=== PATIENT | male | born 2000 | race Caucasian/White ===

== ENCOUNTER 2019-01-11 20:41 | Emergency (ER) | payer BC ==
[2019-01-11] MEDS ORDERED: fentaNYL CITRATE/PF 100 MCG/2 ML INJ. ONE (20:42)
[2019-01-11] MEDS ORDERED: fentaNYL CITRATE/PF 100 MCG/2 ML INJ. IVP ONE (20:43)
--- NOTE | 2019-01-11 20:45 | ED Physician Documentation ---
Upper Extremity Injury - HISTORIAN Historian: patient - HPI Stated Complaint: right shoulder dislocation Chief Complaint: Shoulder Injury/ Pain Onset: just prior to arrival Where: home Severity: moderate Duration: persistent since Context: fall Associated Symptoms: tingling Modifying Factors: pain on movement Further Comments: yes (He reports he has "popped the shoulder back in several times in the past" He has pain in the right shoulder. States he went to get a ball and fell on the shoulder. He has some tingling. He cannot move the arm per his report. He denies any lack of senstaion.) - ROS CONST: no problems - PAST HX Past History: none Immunizations: UTD Allergies/Adverse Reactions: Allergies Allergy/AdvReac Type Severity Reaction Status Date / Time No Known Allergies Allergy Verified 01/11/19 20:50 - SOCIAL HX Smoking History: non-smoker Alcohol Use: none Drug Use: none - FAMILY HX Family History: none - VITAL SIGNS Vital Signs: Vital Signs Temp Pulse Resp BP Pulse Ox 98.4 F 66 16 124/55 97 01/11/19 20:41 01/11/19 21:42 01/11/19 21:42 01/11/19 21:42 01/11/19 21:42 - REVIEWED ASSESSMENTS Nursing Assessment Reviewed: Yes Vitals Reviewed: Yes ED Results Lab/Radiology - Orders Orders: ED Orders Category Date Time Status IV Started NOW Care 01/11/19 20:43 Active SHOULDER BLADE X-RAY [SCAPULA COMPLETE] [RAD] Stat Exams 01/11/19 Taken SHOULDER BLADE X-RAY [SCAPULA COMPLETE] [RAD] Stat Exams 01/11/19 Taken fentaNYL CITRATE/PF [Sublimaze] Med 01/11/19 20:42 Discontinued 100 mcg .ROUTE .STK-MED ONE fentaNYL CITRATE/PF [Sublimaze] Med 01/11/19 20:43 Discontinued 50 mcg IVP NOW ONE Upper Extremity Injury Physic - Physical Exam General Appearance: alert, mild distress Hand: normal inspection, non-tender, no evidence of injury, normal ROM Wrist: normal inspection, non-tender Elbow/Forearm: normal inspection, non-tender, no evidence of injury Shoulder: deformity, soft tissue tenderness (Pulses + ) Neuro/Vascular/Tendon: no vascular compromise Skin: warm,dry Head/ENT: nml inspection Neck/Back: nml inspection Resp/CVS: chest non-tender, breath sounds nml, heart sounds nml, no resp. distress, lungs clear, reg. rate & rhythm Abdomen: non-tender Discharge Clincal Impression: Dislocation of right shoulder joint Qualifiers: Encounter type: initial encounter Qualified Code(s): S43.004A - Unspecified dislocation of right shoulder joint, initial encounter Referrals: Primary Doctor,No [Primary Care Provider] - 2 Days Comments: 1. Arm in sling 2. OTC meds as needed for pain as directed 3. Follow up with PCP about frequent dislocations 4. Return to ER for any increasing concerns Condition: Stable Disposition: 01 HOME, SELF-CARE Decision to Admit: NO Date of Decison to Admit: 01/11/19 Decision Time: 21:13
[2019-01-11 21:43] VITALS: BP 124/55
--- NOTE | 2019-01-13 06:38 | Diagnostic Imaging Report ---
KAYE MCLAUGHLIN [facility] [id number] [address] Report Submission Date: Jan 11, 2019 9:17:36 PM CDT Patient Study Name: SHANTAL FRAZIER Date: Jan 11, 2019 8:56:00 PM CDT Modality Type: DX Gender: M Description: SCAPULA COMPLETE : 98 Institution: [facility] Physician: KAYE MCLAUGHLIN Right scapula two views History: Post reduction Findings: Glenohumeral dislocation has been reduced to anatomic alignment. Electronically signed on Jan 11, 2019 9:17:36 PM CDT by: Joshua BINGHAM
--- NOTE | 2019-01-13 06:39 | Diagnostic Imaging Report ---
KAYE MCLAUGHLIN [facility] [address] [address] Report Submission Date: Jan 11, 2019 9:12:17 PM CDT Patient Study Name: SHANTAL FRAZIER Date: Jan 11, 2019 8:39:48 PM CDT Modality Type: DX Gender: M Description: SCAPULA COMPLETE : 98 Institution: [facility] Physician: KAYE MCLAUGHLIN Right scapula two views History: Dislocation Findings: Anterior subcoracoid glenohumeral dislocation and a Hill-Sachs impaction fracture are observed. Electronically signed on Jan 11, 2019 9:12:17 PM CDT by: Joshua BINGHAM
== END 2019-01-11 21:33 | disposition home or self-care (01) ==
LOC: ED 20:41
DX: S43.084A Other dislocation of right shoulder joint, initial encounter (principal); W01.0XXA Fall on same level from slipping, tripping and stumbling without subsequent striking against object, initial encounter; Y93.89 Activity, other specified; Y92.9 Unspecified place or not applicable
CPT/HCPCS: 23650; 73010; 99283; 99284; J3010; S1016